=== PATIENT | female | born 1985 | race African-American/Black ===

== ENCOUNTER 2020-04-20 09:19 | Emergency (ER) | payer SELFPAY ==
[~2020-04-20] VITALS: Ht 175.3 cm; Wt 104.0 kg
[2020-04-20] MEDS ORDERED: ONDANSETRON ODT 4 MG TAB.RAPDIS. PO ONE (09:30)
[2020-04-20] MEDS ORDERED: IV NORMAL SALINE 1000ML BAG 1,000 ML IV ONE (09:45)
[2020-04-20] MEDS ORDERED: diphenhydrAMINE 50 MG/ML VIAL IVP ONE (09:45)
[2020-04-20] MEDS ORDERED: HALOPERIDOL LACTATE 5 MG/ML VIAL. IVP ONE (09:45)
[2020-04-20 09:46] LABS: BILIRUBIN,URINE NEGATIVE (NEG); CLARITY,URINE CLEAR; COLOR,URINE AMBER; NITRITE,URINE NEGATIVE (NEG); PROTEIN,URINE 100 mg/dL (NEG-TRACE); UROBILINOGEN,URINE 0.2 mg/dL (0.2 mg/dL)
[2020-04-20] MEDS ORDERED: IOHEXOL 300 MG/ML 100ML VIAL. IV ONE (10:00)
[2020-04-20 10:09] LABS: BASO # 0.1 x10^3/uL (0.0-0.2); BASO % 1 % (0-3); EOS % 0 % (0-3); HEMATOCRIT 43.8 % (36.0-47.0); HEMOGLOBIN 15.3 g/dL (12.0-15.5); LYMPH # 2.4 x10^3/uL (1.0-4.8); LYMPH % 13 % (24-48); MEAN CORPUSCULAR HEMOGLOBIN 30 pg (25-35); MEAN CORPUSCULAR HGB CONC 35 g/dL (31-37); MEAN CORPUSCULAR VOLUME 87 fL (79-100); MONO % 6 % (0-9); NEUT # 15.5 x10^3/uL (1.8-7.7); NEUT % 81 % (31-73); PLATELET COUNT 271 x10^3/uL (140-400); RED BLOOD COUNT 5.04 x10^6/uL (3.50-5.40); RED CELL DISTRIBUTION WIDTH 15.3 % (11.5-14.5); WHITE BLOOD COUNT 19.1 x10^3/uL (4.0-11.0)
[2020-04-20] MEDS ORDERED: CONTRAST GIVEN. MC PRN (10:15)
[2020-04-20 10:17] LABS: CALCIUM 9.6 mg/dL (8.5-10.1); CREATININE 0.9 mg/dL (0.6-1.0); GFR 85.2; POTASSIUM 3.2 mmol/L (3.5-5.1)
[2020-04-20 10:23] LABS: ALBUMIN 4.2 g/dL (3.4-5.0); ALBUMIN/GLOBULIN RATIO 1.2 (1.0-1.7); TOTAL BILIRUBIN 0.8 mg/dL (0.2-1.0); TOTAL PROTEIN 7.7 g/dL (6.4-8.2)
[2020-04-20 10:42] LABS: SQUAMOUS EPITHELIAL CELL,UR MANY /LPF
[2020-04-20 10:43] LABS: AMPHETAMINE/METHAMPHETAMINE NEG (NEG); BARBITURATES NEG (NEG); BENZODIAZEPINES NEG (NEG); CANNABINOIDS POS (NEG); COCAINE NEG (NEG); METHADONE NEG (NEG); OPIATES NEG (NEG); PHENCYCLIDINE NEG (NEG); RBC,URINE OCC /HPF (0-2)
[2020-04-20 10:44] LABS: BACTERIA,URINE MODERATE /HPF (0-FEW)
--- NOTE | 2020-04-20 10:55 | RAD ---
CT abdomen and pelvis with contrast PQRS statement: CT scans at this facility use dose reduction including either automated exposure control, iterative reconstructions, and /or weight based radiation dosing via mA and kV modification when appropriate to reduce radiation dose to as low as reasonably achievable. Contrast: 75 mL Omnipaque 300 intravenous contrast. HISTORY: Abdominal pain, nausea, vomiting and diarrhea. Abdomen findings: Gallbladder is absent. Small 4 mm hypodense lesion segment 8 of the liver too small to characterize due to volume averaging most likely small cyst or hemangioma statistically. Pancreas, spleen, 1 cm accessory spleen, adrenal glands and kidneys are unremarkable. No bowel obstruction. The appendix is negative. There is wall thickening from the hepatic flexure distally to the rectosigmoid of the large bowel. No abdominal fluid or adenopathy. Vessels are unremarkable. Lung bases and bones are unremarkable. Pelvis findings: Retroverted uterus with intrauterine device. Ovaries and bladder and bones are unremarkable. No pelvic fluid or adenopathy. There is wall thickening of the rectosigmoid. IMPRESSION: 1. Wall thickening of the large bowel may indicate colitis. No bowel obstruction. 2. The appendix is negative. Electronically signed by: Ernie Varghese MD (04/20/2020 10:52 AM) [facility] [place]
[2020-04-20 11:00] LABS: % EOS 1 % (0-5); % LYMPHS 20 % (24-48); % MONOS 5 % (0-10); % SEGS 74 % (35-66)
[2020-04-20 11:01] LABS: ANISOCYTOSIS SLIGHT; PLT ESTIMATE ADEQUATE (ADEQUATE)
[2020-04-20] MEDS ORDERED: CIPR500T94 PO (11:25)
[2020-04-20] MEDS ORDERED: METR500T PO (11:25)
[2020-04-20] MEDS ORDERED: METO10TA81 PO (11:25)
--- NOTE | 2020-04-20 11:26 | PHYS DOC ---
Past Medical History Past Medical History: Anxiety, Sciatica Additional Past Medical Histor: spinal stenosis Past Surgical History: Cholecystectomy, Smoking Status: Current Every Day Smoker Alcohol Use: None General Adult EDM: Chief Complaint: NAUSEA/VOMITING/DIARRHA HPI: HPI: Patient is a 35-year-old female who smokes marijuana at least twice daily presents with intractable nausea vomiting. She has some abdominal cramps as well. She is been having diarrhea also. [facility] She is on her way back to [place] currently and the symptoms returned. She denies any fever chills or sweats. There is been no melena or hematochezia. No one else has been sick that went on this trip with her. [] Review of Systems: Review of Systems: Constitutional: Denies fever or chills. [] Eyes: Denies change in visual acuity. [] HENT: Denies nasal congestion or sore throat. [] Respiratory: Denies cough or shortness of breath. [] Cardiovascular: Denies chest pain or edema. [] GI: Per HPI [] : Denies dysuria. [] Musculoskeletal: Denies back pain or joint pain. [] Integument: Denies rash. [] Neurologic: Denies headache, focal weakness or sensory changes. [] Endocrine: Denies polyuria or polydipsia. [] Lymphatic: Denies swollen glands. [] Psychiatric: Anxious [] Heart Score: Risk Factors: Risk Factors: DM, Current or recent (<one month) smoker, HTN, HLP, family history of CAD, obesity. Risk Scores: Score 0 - 3: 2.5% MACE over next 6 weeks - Discharge Home Score 4 - 6: 20.3% MACE over next 6 weeks - Admit for Clinical Observation Score 7 - 10: 72.7% MACE over next 6 weeks - Early Invasive Strategies Current Medications: Current Medications Medications (Trade) Dose Ordered Sig/Sandy Start Time Stop Time Status Last Admin Dose Admin Diphenhydramine HCl (Benadryl) 25 mg 1X ONCE 04/20/20 09:45 04/20/20 10:10 DC 04/20/20 10:17 25 MG Haloperidol Lactate (Haldol Inj) 5 mg 1X ONCE 04/20/20 09:45 04/20/20 10:10 DC 04/20/20 10:17 5 MG Info (CONTRAST GIVEN -- Rx MONITORING) 1 each PRN DAILY PRN 04/20/20 10:15 04/22/20 10:14 Iohexol (Omnipaque 300 Mg/ml) 75 ml 1X ONCE 04/20/20 10:00 04/20/20 10:10 DC 04/20/20 10:00 75 ML Ondansetron HCl (Zofran Odt) 8 mg 1X ONCE 04/20/20 09:30 04/20/20 10:10 DC 04/20/20 10:18 8 MG Sodium Chloride 1,000 ml @ 1,000 mls/hr 1X ONCE 04/20/20 09:45 04/20/20 10:44 DC 04/20/20 10:16 1,000 MLS/HR Allergies: Allergies: Allergies Coded Allergies Type Severity Reaction Last Updated Verified No Known Drug Allergies 04/20/20 No Physical Exam: PE: Constitutional: Well developed, well nourished, no acute distress, non-toxic appearance. [] HENT: Normocephalic, atraumatic, bilateral external ears normal, oropharynx moist, no oral exudates, nose normal. [] Eyes: PERRLA, EOMI, conjunctiva normal, no discharge. [] Neck: Normal range of motion, no tenderness, supple, no stridor. [] Cardiovascular:Heart rate regular rhythm, no murmur [] Lungs & Thorax: Bilateral breath sounds clear to auscultation [] Abdomen: Bowel sounds normal, soft, no tenderness, no masses, no pulsatile masses. [] Skin: Warm, dry, no erythema, no rash. [] Back: No tenderness, no CVA tenderness. [] Extremities: No tenderness, no cyanosis, no clubbing, ROM intact, no edema. [] Neurologic: Alert and oriented X 3, normal motor function, normal sensory function, no focal deficits noted. [] Psychologic: Affect normal, judgement normal, mood normal. [] Current Patient Data: Labs: Laboratory Tests Test 04/20/20 09:30 04/20/20 09:32 04/20/20 10:00 Urine Collection Type Unknown Urine Color Liana Urine Clarity Clear Urine pH 6.0 (<5.0-8.0) Urine Specific Rock 1.015 (1.000-1.030) Urine Protein 100 mg/dL (NEG-TRACE) Urine Glucose (UA) 100 mg/dL (NEG) Urine Ketones (Stick) 40 mg/dL (NEG) Urine Blood Trace (NEG) Urine Nitrite Negative (NEG) Urine Bilirubin Negative (NEG) Urine Urobilinogen Dipstick 0.2 mg/dL (0.2 mg/dL) Urine Leukocyte Esterase Trace (NEG) Urine RBC Occ /HPF (0-2) Urine WBC 1-4 /HPF (0-4) Urine Squamous Epithelial Cells Many /LPF Urine Bacteria Moderate /HPF (0-FEW) Urine Mucus Marked /LPF Urine Opiates Screen Neg (NEG) Urine Methadone Screen Neg (NEG) Urine Barbiturates Neg (NEG) Urine Phencyclidine Screen Neg (NEG) Urine Amphetamine/Methamphetamine Neg (NEG) Urine Benzodiazepines Screen Neg (NEG) Urine Cocaine Screen Neg (NEG) Urine Cannabinoids Screen Pos (NEG) Urine Ethyl Alcohol Neg (NEG) POC Urine HCG, Qualitative Hcg negative (Negative) White Blood Count 19.1 x10^3/uL (4.0-11.0) H Red Blood Count 5.04 x10^6/uL (3.50-5.40) Hemoglobin 15.3 g/dL (12.0-15.5) Hematocrit 43.8 % (36.0-47.0) Mean Corpuscular Volume 87 fL (79-100) Mean Corpuscular Hemoglobin 30 pg (25-35) Mean Corpuscular Hemoglobin Concent 35 g/dL (31-37) Red Cell Distribution Width 15.3 % (11.5-14.5) H Platelet Count 271 x10^3/uL (140-400) Neutrophils (%) (Auto) 81 % (31-73) H Lymphocytes (%) (Auto) 13 % (24-48) L Monocytes (%) (Auto) 6 % (0-9) Eosinophils (%) (Auto) 0 % (0-3) Basophils (%) (Auto) 1 % (0-3) Neutrophils # (Auto) 15.5 x10^3/uL (1.8-7.7) H Lymphocytes # (Auto) 2.4 x10^3/uL (1.0-4.8) Monocytes # (Auto) 1.0 x10^3/uL (0.0-1.1) Eosinophils # (Auto) 0.0 x10^3/uL (0.0-0.7) Basophils # (Auto) 0.1 x10^3/uL (0.0-0.2) Segmented Neutrophils % 74 % (35-66) H Lymphocytes % 20 % (24-48) L Monocytes % 5 % (0-10) Eosinophils % 1 % (0-5) Platelet Estimate Adequate (ADEQUATE) Anisocytosis Slight Sodium Level 137 mmol/L (136-145) Potassium Level 3.2 mmol/L (3.5-5.1) L Chloride Level 102 mmol/L (98-107) Carbon Dioxide Level 21 mmol/L (21-32) Anion Gap 14 (6-14) Blood Urea Nitrogen 11 mg/dL (7-20) Creatinine 0.9 mg/dL (0.6-1.0) Estimated GFR (Cockcroft-Gault) 85.2 BUN/Creatinine Ratio 12 (6-20) Glucose Level 124 mg/dL (70-99) H Calcium Level 9.6 mg/dL (8.5-10.1) Magnesium Level 2.0 mg/dL (1.8-2.4) Total Bilirubin 0.8 mg/dL (0.2-1.0) Aspartate Amino Transferase (AST) 52 U/L (15-37) H Alanine Aminotransferase (ALT) 132 U/L (14-59) H Alkaline Phosphatase 157 U/L (46-116) H Total Protein 7.7 g/dL (6.4-8.2) Albumin 4.2 g/dL (3.4-5.0) Albumin/Globulin Ratio 1.2 (1.0-1.7) Lipase 79 U/L (73-393) Laboratory Tests 04/20/20 10:00 Laboratory Tests 04/20/20 10:00 Vital Signs: Vital Signs Date Time Temp Pulse Resp B/P (MAP) Pulse Ox O2 Delivery O2 Flow Rate FiO2 04/20/20 09:30 98.7 62 12 140/81 (100) 99 Room Air 98.7 EKG: EKG: [] Radiology/Procedures: Radiology/Procedures: [] Impression: PROCEDURE: CT ABD PELV W/ IV CONTRST ONLY CT abdomen and pelvis with contrast PQRS statement: CT scans at this facility use dose reduction including either automated exposure control, iterative reconstructions, and /or weight based radiation dosing via mA and kV modification when appropriate to reduce radiation dose to as low as reasonably achievable. Contrast: 75 mL Omnipaque 300 intravenous contrast. HISTORY: Abdominal pain, nausea, vomiting and diarrhea. Abdomen findings: Gallbladder is absent. Small 4 mm hypodense lesion segment 8 of the liver too small to characterize due to volume averaging most likely small cyst or hemangioma statistically. Pancreas, spleen, 1 cm accessory spleen, adrenal glands and kidneys are unremarkable. No bowel obstruction. The appendix is negative. There is wall thickening from the hepatic flexure distally to the rectosigmoid of the large bowel. No abdominal fluid or adenopathy. Vessels are unremarkable. Lung bases and bones are unremarkable. Pelvis findings: Retroverted uterus with intrauterine device. Ovaries and bladder and bones are unremarkable. No pelvic fluid or adenopathy. There is wall thickening of the rectosigmoid. IMPRESSION: 1. Wall thickening of the large bowel may indicate colitis. No bowel obstruction. 2. The appendix is negative. Course & Med Decision Making: Course & Med Decision Making Pertinent Labs and Imaging studies reviewed. (See chart for details) [ED course: Evaluation reveals a 35-year-old female with likely cannabis hyperem esis syndrome. She was given Zofran, Haldol and Benadryl during her stay in the department along with 1 L of IV fluids which did help alleviate her symptoms. I will go ahead and start her on Cipro and Flagyl because of her colitis. I have talked with her about following up with a commercial leasing manager when she gets back to [place].] Rosamaria Disclaimer: Rosamaria Disclaimer: This electronic medical record was generated, in whole or in part, using a voice recognition dictation system. Departure Departure Impression: Primary Impression: Cannabis hyperemesis syndrome concurrent with and due to cannabis dependence Additional Impression: Colitis, infectious Disposition: HOME, SELF-CARE Condition: IMPROVED Referrals: NO PCP (PCP) Patient Instructions: Colitis, Cyclic Vomiting Syndrome Additional Instructions: You will need to follow with a commercial leasing manager when you return to [place]. Scripts Metoclopramide Hcl (REGLAN) 10 Mg Tablet 1 TAB PO Q8HRS PRN for NAUSEA, #30 TAB Take 25 mg of Benadryl with each dose. Prov: LORETA CONNELLY DO 04/20/20 Metronidazole (FLAGYL) 500 Mg Tablet 500 MG PO TID for Colitis, #30 TAB Prov: LORETA CONNELLY DO 04/20/20 Ciprofloxacin Hcl (CIPRO) 500 Mg Tablet 1 TAB PO BID PRN for UTI, #20 TAB Prov: LORETA CONNELLY DO 04/20/20 LORETA CONNELLY DO April 20, 2020 11:26
[2020-04-20 11:32] VITALS: BP 130/62
== END 2020-04-20 11:59 | disposition home or self-care (01) ==
LOC: ER 09:19
DX: K52.89 Other specified noninfective gastroenteritis and colitis (principal); R11.2 Nausea with vomiting, unspecified; R19.7 Diarrhea, unspecified; F12.10 Cannabis abuse, uncomplicated; F41.9 Anxiety disorder, unspecified; F17.200 Nicotine dependence, unspecified, uncomplicated; Z90.49 Acquired absence of other specified parts of digestive tract; Z98.890 Other specified postprocedural states
CPT/HCPCS: 36415; 74177; 80053; 80307; 81001; 81025; 83690; 83735; 85007; 85025; 87086; 96361; 96374; 96375; 99285; J1200; J1630; J7030; Q0162; Q9967